=== PATIENT | female | born 1990 | race Caucasian/White ===

== ENCOUNTER 2019-03-05 12:43 | Emergency (ER) | payer OTHER ==
[2019-03-05] MEDS ORDERED: ASPIRIN 325 MG TABLET ONE (13:10)
[2019-03-05] MEDS ORDERED: ONDANSETRON HCL 4 MG/2 ML VIAL ONE (13:16)
[2019-03-05] MEDS ORDERED: CLINDAMYCIN 600 MG/D5% WATER 50 ML IV ONE (13:17)
[2019-03-05] MEDS ORDERED: MORPHINE SULFATE 4 MG/1ML SYG ONE (13:17)
[2019-03-05] MEDS ORDERED: SODIUM CHLORIDE 0.9% 1000ML 1,000 ML IV ONE (13:18)
[2019-03-05 13:25] LABS: EOSINOPHILS % (AUTO) 2.2 % (0.0-8.0); HEMATOCRIT 47.3 % (36-48); LYMPHOCYTES % (AUTO) 28.8 % (21.0-51.0); MEAN CORPUSCULAR HEMOGLOBIN 30.9 pg (27.0-33.0); MEAN CORPUSCULAR HGB CONC 34.3 g/dL (32.0-36.0); MEAN CORPUSCULAR VOLUME 89.8 fL (79-99); MONOCYTES % (AUTO) 5.3 % (3.0-13.0); NEUTROPHILS % (AUTO) 62.7 % (40.0-77.0); NUCLEATED RED BLOOD CELLS 0.1 % (0.0-0.19); PLATELET COUNT (AUTO) 361 K/uL (130-400); RED BLOOD CELL COUNT(AUTO) 5.27 MIL/uL (4.00-5.50); RED CELL DISTRIBUTION WIDTH 12.8 % (11.0-15.5); WHITE BLOOD COUNT (AUTO) 12.1 K/uL (4.8-10.8)
[2019-03-05 13:31] LABS: CREATININE 0.8 mg/dL (0.5-1.5); POTASSIUM 4.2 mmol/L (3.5-5.1)
[2019-03-05 13:36] LABS: ALBUMIN 3.6 g/dL (3.5-5.0); BILIRUBIN,TOTAL 0.3 mg/dL (0.2-1.0); TOTAL PROTEIN, SERUM 7.1 g/dL (6.0-8.3)
[2019-03-05 14:08] LABS: INR 0.95 (0.85-1.15); PARTIAL THROMBOPLASTIN TIME 27.3 SEC (26.3-35.5)
[2019-03-05] MEDS ORDERED: IOHEXOL-350 75 ML VIAL IV ONE (14:54)
== END 2019-03-05 17:26 | disposition home or self-care (01) ==
LOC: EDH 12:43
DX: R59.1 Generalized enlarged lymph nodes (principal); R68.84 Jaw pain; E11.9 Type 2 diabetes mellitus without complications
CPT/HCPCS: 36415; 70491; 71045; 80053; 82550; 84484; 84702; 85025; 85610; 85651; 85730; 86140; 87040 ×2; 93005; 96365; 96366; 96375; 96376; 99285; J2270; J2405; J3490; J7030; Q9967

== ENCOUNTER 2019-03-31 12:44 | Emergency (ER) | payer BC, OTHER ==
[2019-03-31 13:32] LABS: APPEARANCE,URINE CLOUDY (CLEAR); BILIRUBIN,URINE SMALL (NEGATIVE); COLOR,URINE YELLOW (YELLOW); GLUCOSE, URINE (UA) >=1000 mg/dL (NEGATIVE); KETONES,URINE 5 mg/dL (NEGATIVE); LEUKOCYTE ESTERASE ,URINE NEGATIVE (NEGATIVE); NITRATE,URINE NEGATIVE (NEGATIVE); OCCULT BLOOD,URINE MODERATE (NEGATIVE); PROTEIN,URINE TRACE mg/dL (NEGATIVE); UROBILINOGEN,URINE 0.2 mg/dL (0.2-1.0)
[2019-03-31 13:35] LABS: HCG,QUAL RESULT NEGATIVE (NEGATIVE)
[2019-03-31 13:38] LABS: BASOPHILS % (AUTO) 0.6 % (0.0-5.0); EOSINOPHILS % (AUTO) 2.6 % (0.0-8.0); HEMATOCRIT 45.3 % (36-48); LYMPHOCYTES % (AUTO) 23.5 % (21.0-51.0); MEAN CORPUSCULAR HEMOGLOBIN 30.7 pg (27.0-33.0); MEAN CORPUSCULAR VOLUME 90.5 fL (79-99); MONOCYTES % (AUTO) 4.9 % (3.0-13.0); NEUTROPHILS % (AUTO) 68.4 % (40.0-77.0); NUCLEATED RED BLOOD CELLS 0.1 % (0.0-0.19); PLATELET COUNT (AUTO) 339 K/uL (130-400); RED BLOOD CELL COUNT(AUTO) 5.01 MIL/uL (4.00-5.50); RED CELL DISTRIBUTION WIDTH 12.8 % (11.0-15.5); WHITE BLOOD COUNT (AUTO) 12.6 K/uL (4.8-10.8)
[2019-03-31 13:47] LABS: CREATININE 0.7 mg/dL (0.5-1.5); POTASSIUM 3.9 mmol/L (3.5-5.1)
[2019-03-31 13:52] LABS: ALBUMIN 3.2 g/dL (3.5-5.0); BILIRUBIN,TOTAL 0.2 mg/dL (0.2-1.0); TOTAL PROTEIN, SERUM 6.9 g/dL (6.0-8.3)
[2019-03-31 13:53] LABS: BACTERIA,URINE Rare /HPF (None Seen); RBC,URINE TNTC /HPF (0-1); SQUAMOUS EPITHELIAL CELL,UR Few /HPF (0-2)
== END 2019-03-31 15:30 | disposition home or self-care (01) ==
LOC: EDH 12:44
DX: R10.2 Pelvic and perineal pain (principal)
CPT/HCPCS: 36415; 76830; 80053; 81001; 81025; 85025

== ENCOUNTER 2019-05-21 21:10 | Emergency (ER) | payer BC ==
[2019-05-21 21:42] LABS: BASOPHILS % (AUTO) 0.6 % (0.0-5.0); EOSINOPHILS % (AUTO) 2.1 % (0.0-8.0); HEMATOCRIT 42.1 % (36-48); LYMPHOCYTES % (AUTO) 31.1 % (21.0-51.0); MEAN CORPUSCULAR HEMOGLOBIN 29.3 pg (27.0-33.0); MEAN CORPUSCULAR VOLUME 88.6 fL (79-99); MONOCYTES % (AUTO) 5.3 % (3.0-13.0); NEUTROPHILS % (AUTO) 60.6 % (40.0-77.0); PLATELET COUNT (AUTO) 377 K/uL (130-400); RED BLOOD CELL COUNT(AUTO) 4.75 MIL/uL (4.00-5.50); RED CELL DISTRIBUTION WIDTH 12.9 % (11.0-15.5); WHITE BLOOD COUNT (AUTO) 12.6 K/uL (4.8-10.8)
[2019-05-21 21:56] LABS: CREATININE 0.8 mg/dL (0.5-1.5); POTASSIUM 3.5 mmol/L (3.5-5.1)
[2019-05-21 22:04] LABS: ALBUMIN 3.3 g/dL (3.5-5.0); BILIRUBIN,TOTAL 0.2 mg/dL (0.2-1.0)
[2019-05-21 22:11] LABS: APPEARANCE,URINE Clear (CLEAR); BILIRUBIN,URINE Negative (NEGATIVE); COLOR,URINE Yellow (YELLOW); GLUCOSE, URINE (UA) >=1000 mg/dL (NEGATIVE); HCG,QUAL RESULT NEGATIVE (NEGATIVE); KETONES,URINE Negative (NEGATIVE); LEUKOCYTE ESTERASE ,URINE Negative (NEGATIVE); NITRATE,URINE Negative (NEGATIVE); OCCULT BLOOD,URINE Moderate (NEGATIVE); PROTEIN,URINE Negative (NEGATIVE)
[2019-05-21 22:21] LABS: BACTERIA,URINE Few /HPF (None Seen); RBC,URINE None Seen /HPF (0-1); SQUAMOUS EPITHELIAL CELL,UR 0-2 /HPF (0-2); WBC,URINE 0-1 /HPF (0-1)
== END 2019-05-21 23:37 | disposition home or self-care (01) ==
LOC: EDH 21:10
DX: N93.9 Abnormal uterine and vaginal bleeding, unspecified (principal); E11.9 Type 2 diabetes mellitus without complications; Z90.49 Acquired absence of other specified parts of digestive tract; Z72.0 Tobacco use; Z88.6 Allergy status to analgesic agent; Z91.048 Other nonmedicinal substance allergy status; Z88.1 Allergy status to other antibiotic agents
CPT/HCPCS: 36415; 76856; 80053; 81001; 81025; 85025

== ENCOUNTER 2019-05-29 18:22 | Emergency (ER) | payer BC ==
[2019-05-29 20:10] LABS: BASOPHILS % (AUTO) 0.4 % (0.0-5.0); HEMATOCRIT 43.6 % (36-48); LYMPHOCYTES % (AUTO) 28.7 % (21.0-51.0); MEAN CORPUSCULAR HEMOGLOBIN 29.6 pg (27.0-33.0); MEAN CORPUSCULAR HGB CONC 33.3 g/dL (32.0-36.0); MONOCYTES % (AUTO) 5.8 % (3.0-13.0); NEUTROPHILS % (AUTO) 62.7 % (40.0-77.0); PLATELET COUNT (AUTO) 376 K/uL (130-400); RED CELL DISTRIBUTION WIDTH 13.1 % (11.0-15.5); WHITE BLOOD COUNT (AUTO) 14.2 K/uL (4.8-10.8)
[2019-05-29] MEDS ORDERED: MORPHINE SULFATE 4 MG/1ML SYG ONE (20:21)
[2019-05-29] MEDS ORDERED: ONDANSETRON HCL 4 MG/2 ML VIAL ONE (20:21)
[2019-05-29 20:34] LABS: CREATININE 0.8 mg/dL (0.5-1.5); POTASSIUM 3.7 mmol/L (3.5-5.1)
[2019-05-29 20:45] LABS: ALBUMIN 3.3 g/dL (3.5-5.0); BILIRUBIN,TOTAL 0.1 mg/dL (0.2-1.0); TOTAL PROTEIN, SERUM 7.1 g/dL (6.0-8.3)
[2019-05-29 21:02] LABS: APPEARANCE,URINE Cloudy (CLEAR); BILIRUBIN,URINE Negative (NEGATIVE); COLOR,URINE Yellow (YELLOW); GLUCOSE, URINE (UA) 500 mg/dL (NEGATIVE); KETONES,URINE Negative (NEGATIVE); LEUKOCYTE ESTERASE ,URINE Trace (NEGATIVE); NITRATE,URINE Negative (NEGATIVE); OCCULT BLOOD,URINE Negative (NEGATIVE); PROTEIN,URINE Negative (NEGATIVE)
[2019-05-29 21:11] LABS: AMPHET/METH SCREEN,URINE NEGATIVE (NEGATIVE); BARBITURATE SCREEN, URINE NEGATIVE (NEGATIVE); BENZODIAZEPINES SCREEN,URINE NEGATIVE (NEGATIVE); CANNABINOID SCREEN,URINE POSITIVE (NEGATIVE); COCAINE SCREEN,URINE POSITIVE (NEGATIVE); OPIATE SCREEN,URINE POSITIVE (NEGATIVE); PHENCYCLIDINE SCREEN,URINE NEGATIVE (NEGATIVE)
[2019-05-29 21:15] LABS: BACTERIA,URINE Few /HPF (None Seen); MUCUS,URINE Few LPF (None Seen); SQUAMOUS EPITHELIAL CELL,UR Few /HPF (0-2); URIC ACID CRYSTALS,URINE Moderate /LPF (None Seen)
[2019-05-29] MEDS ORDERED: FLUCONAZOLE 100 MG TAB ONE (21:45)
[2019-05-29] MEDS ORDERED: CEFTRIAXONE SODIUM 1 GM ONE (21:45)
[2019-05-29] MEDS ORDERED: LIDOCAINE HCL-MPF 1% 2ML VIAL ONE (21:45)
[2019-05-29] MEDS ORDERED: AZITHROMYCIN 250 MG TABLET PO ONE (21:46)
== END 2019-05-29 22:41 | disposition home or self-care (01) ==
LOC: EDH 18:22
DX: N73.9 Female pelvic inflammatory disease, unspecified (principal); E11.9 Type 2 diabetes mellitus without complications; F14.10 Cocaine abuse, uncomplicated; F12.10 Cannabis abuse, uncomplicated; Z88.6 Allergy status to analgesic agent; Z88.8 Allergy status to other drugs, medicaments and biological substances; Z90.49 Acquired absence of other specified parts of digestive tract; Z72.0 Tobacco use
CPT/HCPCS: 36415; 76830; 80053; 80305; 81001; 84702; 85025; 87210; 87486; 87797; 96372; 96374; 99284; J0696; J2270; J2405; J3490

== ENCOUNTER 2020-09-18 03:49 | Emergency (ER) | payer BC ==
[2020-09-18 04:24] LABS: BASOPHILS % (AUTO) 0.6 % (0.0-5.0); EOSINOPHILS % (AUTO) 2.2 % (0.0-8.0); HEMATOCRIT 44.4 % (36-48); LYMPHOCYTES % (AUTO) 30.2 % (21.0-51.0); MEAN CORPUSCULAR HEMOGLOBIN 32.1 pg (27.0-33.0); MEAN CORPUSCULAR HGB CONC 35.1 g/dL (32.0-36.0); MEAN CORPUSCULAR VOLUME 91.4 fL (79-99); MONOCYTES % (AUTO) 4.3 % (3.0-13.0); NEUTROPHILS % (AUTO) 62.3 % (40.0-77.0); PLATELET COUNT (AUTO) 373 K/uL (130-400); RED BLOOD CELL COUNT(AUTO) 4.86 MIL/uL (4.00-5.50); RED CELL DISTRIBUTION WIDTH 12.8 % (11.0-15.5); WHITE BLOOD COUNT (AUTO) 15.4 K/uL (4.8-10.8)
[2020-09-18 04:30] LABS: APPEARANCE,URINE Clear (CLEAR); BILIRUBIN,URINE Negative (NEGATIVE); COLOR,URINE Yellow (YELLOW); GLUCOSE, URINE (UA) >=1000 mg/dL (NEGATIVE); KETONES,URINE 15 mg/dL (NEGATIVE); LEUKOCYTE ESTERASE ,URINE Negative (NEGATIVE); NITRATE,URINE Negative (NEGATIVE); OCCULT BLOOD,URINE Small (NEGATIVE); PROTEIN,URINE Negative (NEGATIVE); UROBILINOGEN,URINE 0.2 mg/dL (0.2-1.0)
[2020-09-18 04:31] LABS: HCG,QUAL RESULT NEGATIVE (NEGATIVE)
[2020-09-18 04:37] LABS: CREATININE 0.9 mg/dL (0.5-1.5); POTASSIUM 3.8 mmol/L (3.5-5.1)
[2020-09-18 04:40] LABS: BACTERIA,URINE Few /HPF (None Seen); RBC,URINE None Seen /HPF (0-1); WBC,URINE 0-1 /HPF (0-1)
[2020-09-18 04:42] LABS: ALBUMIN 3.2 g/dL (3.5-5.0); BILIRUBIN,TOTAL 0.4 mg/dL (0.2-1.0)
[2020-09-18] MEDS ORDERED: IOHEXOL 350 MG/ML 100ML INFUS..BTL IV ONE (05:03)
[2020-09-18] MEDS ORDERED: ONDANSETRON HCL 4 MG/2 ML VIAL ONE (05:14)
[2020-09-18] MEDS ORDERED: METOCLOPRAMIDE 10 MG/2 ML VIAL ONE (05:14)
[2020-09-18 05:16] LABS: AMPHET/METH SCREEN,URINE NEGATIVE (NEGATIVE); BARBITURATE SCREEN, URINE NEGATIVE (NEGATIVE); BENZODIAZEPINES SCREEN,URINE NEGATIVE (NEGATIVE); CANNABINOID SCREEN,URINE POSITIVE (NEGATIVE); COCAINE SCREEN,URINE NEGATIVE (NEGATIVE); OPIATE SCREEN,URINE NEGATIVE (NEGATIVE); PHENCYCLIDINE SCREEN,URINE NEGATIVE (NEGATIVE)
[2020-09-18 05:37] LABS: TOTAL PROTEIN, SERUM 6.9 g/dL (6.0-8.3)
[2020-09-18] MEDS ORDERED: LEVOFLOXACIN 500 MG TABLET ONE (08:02)
[2020-09-18] MEDS ORDERED: HYOSCYAMINE SULFATE 0.125 MG TAB.SUBL SL ONE (08:02)
[2020-09-18] MEDS ORDERED: FLUCONAZOLE 100 MG TAB ONE (08:02)
== END 2020-09-18 08:55 | disposition home or self-care (01) ==
LOC: EDH 03:49
DX: N39.0 Urinary tract infection, site not specified (principal); R19.7 Diarrhea, unspecified; E86.0 Dehydration; Z90.49 Acquired absence of other specified parts of digestive tract; Z72.0 Tobacco use; Z88.5 Allergy status to narcotic agent; Z88.6 Allergy status to analgesic agent; Z88.8 Allergy status to other drugs, medicaments and biological substances
CPT/HCPCS: 36415; 74177; 80053; 80305; 81001; 81025; 83605 ×2; 83690; 85025; 87040 ×2; 96361; 96374; 96375; 99285; J2405; J2765; Q9967

== ENCOUNTER 2020-12-22 16:32 | Emergency (ER) | payer BC, MEDICAID ==
[~2020-12-22] VITALS: Ht 157.5 cm; Wt 83.9 kg
[2020-12-22 16:34] VITALS: BP 140/74
== END 2020-12-22 19:10 | disposition left against medical advice (07) ==
LOC: EDH 16:32
DX: O26.891 Other specified pregnancy related conditions, first trimester (principal); R51.9 Headache, unspecified; Z53.21 Procedure and treatment not carried out due to patient leaving prior to being seen by health care provider; Z3A.10 10 weeks gestation of pregnancy

== ENCOUNTER 2021-01-18 18:04 | Observation (INO) | payer MEDICAID ==
[~2021-01-18] VITALS: Ht 152.4 cm; Wt 86.2 kg
[2021-01-18 18:20] VITALS: BP 125/75
[2021-01-18 18:52] LABS: APPEARANCE,URINE CLOUDY (CLEAR); BILIRUBIN,URINE NEGATIVE (NEGATIVE); COLOR,URINE YELLOW (YELLOW); GLUCOSE, URINE (UA) NEGATIVE (NEGATIVE); KETONES,URINE 5 mg/dL (NEGATIVE); LEUKOCYTE ESTERASE ,URINE NEGATIVE (NEGATIVE); NITRATE,URINE NEGATIVE (NEGATIVE); OCCULT BLOOD,URINE TRACE-INTACT (NEGATIVE); PH,URINE 6.5 (5.0-8.0); PROTEIN,URINE NEGATIVE (NEGATIVE); UROBILINOGEN,URINE 0.2 mg/dL (0.2-1.0)
[2021-01-18 18:54] LABS: BASOPHILS % (AUTO) 0.5 % (0.0-5.0); EOSINOPHILS % (AUTO) 0.9 % (0.0-8.0); HEMATOCRIT 37.2 % (36-48); MEAN CORPUSCULAR HEMOGLOBIN 30.1 pg (27.0-33.0); MEAN CORPUSCULAR HGB CONC 33.6 g/dL (32.0-36.0); MEAN CORPUSCULAR VOLUME 89.6 fL (79-99); MONOCYTES % (AUTO) 5.1 % (3.0-13.0); NEUTROPHILS % (AUTO) 75.1 % (40.0-77.0); PLATELET COUNT (AUTO) 358 K/uL (130-400); RED BLOOD CELL COUNT(AUTO) 4.15 MIL/uL (4.00-5.50); RED CELL DISTRIBUTION WIDTH 12.7 % (11.0-15.5)
[2021-01-18 19:01] LABS: BACTERIA,URINE Few /HPF (None Seen); CALCIUM OXALATE CRYSTALS,UR Few /LPF (None Seen); SQUAMOUS EPITHELIAL CELL,UR Many /HPF (0-2); WBC,URINE 0-1 /HPF (0-1)
[2021-01-18 19:02] LABS: AMORPHOUS SEDIMENT,UR Few /LPF (None Seen)
[2021-01-18] MEDS ORDERED: 0.9%NACL 1000ML 1,000 ML IV ONE (19:30)
[2021-01-18] MEDS ORDERED: LACTATED RINGERS 1000ML 1,000 ML IV ONE (19:44)
[2021-01-18 20:00] VITALS: BP 124/70
[2021-01-18] MEDS ORDERED: LACTATED RINGERS 1000ML 1,000 ML IV SCH (20:00)
[2021-01-18 21:48] LABS: BILIRUBIN,TOTAL 0.2 mg/dL (0.2-1.0); CREATININE 0.5 mg/dL (0.5-1.5); POTASSIUM 3.4 mmol/L (3.5-5.1); TOTAL PROTEIN, SERUM 6.5 g/dL (6.0-8.3)
[2021-01-18 22:00] VITALS: BP 122/56
[2021-01-18] MEDS: ACETAMINOPHEN WITH CODEINE 1 TAB TAB PO PRN (22:41)
[2021-01-18 23:05] VITALS: BP 123/68
[2021-01-19] MEDS ORDERED: PNV#1CAP5 PO (00:10)
[2021-01-19] MEDS ORDERED: NPH,100V11 SQ (00:10)
[2021-01-19] MEDS ORDERED: ACETAMINOPHEN WITH CODEINE 1 TAB TAB PO PRN (00:30)
[2021-01-19] MEDS: LACTATED RINGERS 1000ML 1,000 ML IV SCH ×2 (03:34→10:09)
[2021-01-19] MEDS: ACETAMINOPHEN WITH CODEINE 1 TAB TAB PO PRN ×3 (04:07→12:34)
[2021-01-19 04:36] VITALS: BP 110/64
[2021-01-19 08:01] VITALS: BP 111/59
[2021-01-19] MEDS ORDERED: INSULIN NPH 100 UNIT/ML 3ML SQ SCH ×4 (09:00→21:00)
[2021-01-19] MEDS ORDERED: PHARMACY COMMUNICATION MISC SCH ×2 (09:00→21:00)
[2021-01-19 11:21] VITALS: BP 101/47
[2021-01-20] MEDS ORDERED: INSULIN NPH 100 UNIT/ML 3ML SQ SCH (07:30)
== END 2021-01-19 16:15 | disposition home or self-care (01) ==
LOC: EDH 18:04 → EDHIP 19:16 → WSH 01-19
PROVIDERS: ADMIT Specialist; ATTEND Specialist
DX: O26.892 Other specified pregnancy related conditions, second trimester (principal); R10.30 Lower abdominal pain, unspecified; R10.2 Pelvic and perineal pain; O24.912 Unspecified diabetes mellitus in pregnancy, second trimester; Z3A.20 20 weeks gestation of pregnancy; Z87.442 Personal history of urinary calculi
CPT/HCPCS: 36415; 76770; 80053; 81001; 82948 ×3; 84702; 85025; 86850; 86900; 86901; 96360; 96361 ×2; 99284; G0378 ×21; J7120 ×2

== ENCOUNTER 2021-01-31 22:17 | Emergency (ER) | payer MEDICAID ==
[~2021-01-31] VITALS: Ht 152.4 cm; Wt 87.5 kg
[~2021-01-31 22:17] MED LIST: NPH,100V11 SQ; PNV#1CAP5 PO
[2021-01-31 22:44] VITALS: BP 127/58
[2021-01-31 23:16] VITALS: BP 123/70
[2021-01-31] MEDS ORDERED: ACETAMINOPHEN 325 MG TAB PO ONE (23:30)
[2021-01-31] MEDS ORDERED: 0.9%NACL 1000ML 1,000 ML IV ONE (23:30)
[2021-01-31 23:38] LABS: BASOPHILS % (AUTO) 0.4 % (0.0-5.0); EOSINOPHILS % (AUTO) 1.2 % (0.0-8.0); HEMATOCRIT 39.6 % (36-48); LYMPHOCYTES % (AUTO) 17.3 % (21.0-51.0); MEAN CORPUSCULAR HEMOGLOBIN 30.8 pg (27.0-33.0); MEAN CORPUSCULAR HGB CONC 34.1 g/dL (32.0-36.0); MEAN CORPUSCULAR VOLUME 90.4 fL (79-99); MONOCYTES % (AUTO) 5.2 % (3.0-13.0); NEUTROPHILS % (AUTO) 75.3 % (40.0-77.0); PLATELET COUNT (AUTO) 365 K/uL (130-400); RED BLOOD CELL COUNT(AUTO) 4.38 MIL/uL (4.00-5.50); RED CELL DISTRIBUTION WIDTH 12.9 % (11.0-15.5); WHITE BLOOD COUNT (AUTO) 15.6 K/uL (4.8-10.8)
[2021-01-31 23:39] LABS: APPEARANCE,URINE Turbid (CLEAR); BILIRUBIN,URINE Negative (NEGATIVE); COLOR,URINE Yellow (YELLOW); GLUCOSE, URINE (UA) 500 mg/dL (NEGATIVE); KETONES,URINE Negative (NEGATIVE); LEUKOCYTE ESTERASE ,URINE Negative (NEGATIVE); NITRATE,URINE Negative (NEGATIVE); OCCULT BLOOD,URINE Negative (NEGATIVE); PROTEIN,URINE Negative (NEGATIVE)
[2021-01-31 23:45] LABS: CREATININE 0.5 mg/dL (0.5-1.5); POTASSIUM 3.7 mmol/L (3.5-5.1)
[2021-02-01] LABS: AMORPHOUS SEDIMENT,UR Moderate /LPF (None Seen); BACTERIA,URINE None Seen /HPF (None Seen); CALCIUM OXALATE CRYSTALS,UR Few /LPF (None Seen); RBC,URINE 0-1 /HPF (0-1); SQUAMOUS EPITHELIAL CELL,UR Few /HPF (0-2); TRANSITIONAL EPI CELLS,URINE Few /HPF (None Seen); WBC,URINE None Seen /HPF (0-1)
[2021-02-01 00:11] LABS: ALBUMIN 3.2 g/dL (3.5-5.0); BILIRUBIN,TOTAL 0.1 mg/dL (0.2-1.0); TOTAL PROTEIN, SERUM 6.6 g/dL (6.0-8.3)
[2021-02-01 00:52] VITALS: BP_SYST 114; BP_SYST 168; BP_DIAS 73; BP_DIAS 91
[2021-02-01 04:18] VITALS: BP 110/59
== END 2021-02-01 04:38 | disposition home or self-care (01) ==
LOC: EDH 22:17
DX: O26.892 Other specified pregnancy related conditions, second trimester (principal); R10.2 Pelvic and perineal pain; O20.9 Hemorrhage in early pregnancy, unspecified; Z79.4 Long term (current) use of insulin; Z87.442 Personal history of urinary calculi; Z88.1 Allergy status to other antibiotic agents; Z88.5 Allergy status to narcotic agent; Z91.013 Allergy to seafood; Z90.49 Acquired absence of other specified parts of digestive tract; Z3A.15 15 weeks gestation of pregnancy
CPT/HCPCS: 36415; 76775; 76805; 80053; 81001; 83690; 84702; 85025; 87088; 96360; 96361; 99285; J7030

== ENCOUNTER 2021-03-14 16:58 | Observation (INO) | payer MEDICAID ==
[~2021-03-14] VITALS: Ht 162.6 cm; Wt 73.5 kg
[2021-03-14 18:02] LABS: APPEARANCE,URINE Clear (CLEAR); BILIRUBIN,URINE Negative (NEGATIVE); COLOR,URINE Yellow (YELLOW); GLUCOSE, URINE (UA) 250 mg/dL (NEGATIVE); KETONES,URINE 15 mg/dL (NEGATIVE); LEUKOCYTE ESTERASE ,URINE Negative (NEGATIVE); NITRATE,URINE Negative (NEGATIVE); OCCULT BLOOD,URINE Negative (NEGATIVE); PH,URINE 6.5 (5.0-8.0); PROTEIN,URINE Negative (NEGATIVE)
[2021-03-14 18:09] LABS: AMPHET/METH SCREEN,URINE NEGATIVE (NEGATIVE); BARBITURATE SCREEN, URINE NEGATIVE (NEGATIVE); BENZODIAZEPINES SCREEN,URINE NEGATIVE (NEGATIVE); CANNABINOID SCREEN,URINE NEGATIVE (NEGATIVE); COCAINE SCREEN,URINE NEGATIVE (NEGATIVE); OPIATE SCREEN,URINE NEGATIVE (NEGATIVE); PHENCYCLIDINE SCREEN,URINE NEGATIVE (NEGATIVE)
[2021-03-14 18:28] LABS: BACTERIA,URINE Few /HPF (None Seen); RBC,URINE 0-1 /HPF (0-1); SQUAMOUS EPITHELIAL CELL,UR Few /HPF (0-2)
[2021-03-14 18:29] LABS: MUCUS,URINE Rare LPF (None Seen)
[2021-03-14] MEDS ORDERED: LACTATED RINGERS 1000ML 1,000 ML IV ONE (18:45)
[2021-03-14] MEDS ORDERED: LACTATED RINGERS 1000ML IV SCH (19:00)
[2021-03-14] MEDS ORDERED: ACETAMINOPHEN 500 MG TABLET PO ONE (19:00)
[2021-03-14 19:09] VITALS: BP 118/66
[2021-03-15] MEDS ORDERED: NPH,100V SQ ×2 (14:41)
== END 2021-03-14 20:28 | disposition home or self-care (01) ==
LOC: EDH 16:58 → LDH 16:59
PROVIDERS: ADMIT Specialist; ATTEND Specialist
DX: O26.892 Other specified pregnancy related conditions, second trimester (principal); R10.9 Unspecified abdominal pain; O99.332 Smoking (tobacco) complicating pregnancy, second trimester; F17.200 Nicotine dependence, unspecified, uncomplicated; Z3A.21 21 weeks gestation of pregnancy; Z87.440 Personal history of urinary (tract) infections; Z87.442 Personal history of urinary calculi
CPT/HCPCS: 80305; 81001; 87088; 96360; 96361; G0378; J7120

== ENCOUNTER 2021-03-15 12:53 | Inpatient (IN) | payer MEDICAID ==
[~2021-03-15] VITALS: Ht 152.4 cm; Wt 95.3 kg
[2021-03-15 13:28] VITALS: BP 128/75
[2021-03-15] MEDS: ACETAMINOPHEN WITH CODEINE 1 TAB TAB PO PRN ×2 (14:11→19:03)
[2021-03-15] MEDS: LACTATED RINGERS 1000ML 1,000 ML IV SCH ×2 (14:12→21:35)
[2021-03-15 14:23] LABS: HEMATOCRIT 35.5 % (36-48); MEAN CORPUSCULAR HEMOGLOBIN 30.3 pg (27.0-33.0); MEAN CORPUSCULAR HGB CONC 33.2 g/dL (32.0-36.0); MEAN CORPUSCULAR VOLUME 91.3 fL (79-99); RED BLOOD CELL COUNT(AUTO) 3.89 MIL/uL (4.00-5.50); RED CELL DISTRIBUTION WIDTH 13.3 % (11.0-15.5); WHITE BLOOD COUNT (AUTO) 16.2 K/uL (4.8-10.8)
[2021-03-15] MEDS ORDERED: NPH,100V SQ ×2 (14:41)
[2021-03-15 14:47] LABS: HEMOGLOBIN A1C 7.4 % (4.0-6.0)
[2021-03-15] MEDS: AMPICILLIN 2GM+NS 100ML IV SCH ×2 (15:08→20:51)
[2021-03-15 16:39] VITALS: BP 118/63
[2021-03-15 19:31] VITALS: BP 119/57
[2021-03-15] MEDS: INSULIN NPH 100 UNIT/ML 3ML SQ SCH (20:58)
[2021-03-15] MEDS: MEPERIDINE-PF 50 MG/ML SYG IM PRN (21:37)
[2021-03-15] MEDS: PROMETHAZINE HCL 25 MG/ML 1ML AMPULE IM PRN (21:37)
[2021-03-15 23:20] VITALS: BP 118/61
[2021-03-16] MEDS: AMPICILLIN 2GM+NS 100ML IV SCH ×4 (02:10→21:02)
[2021-03-16] MEDS: PROMETHAZINE HCL 25 MG/ML 1ML AMPULE IM PRN ×4 (02:11→21:02)
[2021-03-16] MEDS: MEPERIDINE-PF 50 MG/ML SYG IM PRN ×4 (02:11→21:02)
[2021-03-16 03:06] VITALS: BP 123/63
[2021-03-16] MEDS: LACTATED RINGERS 1000ML 1,000 ML IV SCH ×2 (05:47→13:59)
[2021-03-16] MEDS: ACETAMINOPHEN WITH CODEINE 1 TAB TAB PO PRN (06:00)
[2021-03-16 07:15] VITALS: BP 112/63
[2021-03-16] MEDS: INSULIN NPH 100 UNIT/ML 3ML SQ SCH ×2 (07:45→20:54)
[2021-03-16] MEDS: INSULIN HUMULIN R 100 UNIT/ML 3ML SQ SCH ×3 (11:30→21:00)
[2021-03-16 11:34] VITALS: BP 106/64
[2021-03-16 16:22] VITALS: BP 111/57
[2021-03-16 19:22] VITALS: BP 108/59
[2021-03-16 23:04] VITALS: BP 111/60
[2021-03-17] MEDS: LACTATED RINGERS 1000ML 1,000 ML IV SCH ×4 (00:04→23:10)
[2021-03-17] MEDS: AMPICILLIN 2GM+NS 100ML IV SCH ×4 (02:08→20:26)
[2021-03-17] MEDS: PROMETHAZINE HCL 25 MG/ML 1ML AMPULE IM PRN ×4 (03:23→19:59)
[2021-03-17] MEDS: MEPERIDINE-PF 50 MG/ML SYG IM PRN ×4 (03:24→19:59)
[2021-03-17 03:25] VITALS: BP 102/55
[2021-03-17 05:44] LABS: HEMATOCRIT 32.5 % (36-48); MEAN CORPUSCULAR HEMOGLOBIN 29.6 pg (27.0-33.0); MEAN CORPUSCULAR VOLUME 92.6 fL (79-99); RED BLOOD CELL COUNT(AUTO) 3.51 MIL/uL (4.00-5.50); RED CELL DISTRIBUTION WIDTH 13.4 % (11.0-15.5); WHITE BLOOD COUNT (AUTO) 14.7 K/uL (4.8-10.8)
[2021-03-17 05:58] LABS: CREATININE 0.5 mg/dL (0.5-1.5); POTASSIUM 3.8 mmol/L (3.5-5.1)
[2021-03-17 07:19] VITALS: BP 101/55
[2021-03-17] MEDS: INSULIN HUMULIN R 100 UNIT/ML 3ML SQ SCH ×4 (07:30→21:00)
[2021-03-17] MEDS: INSULIN NPH 100 UNIT/ML 3ML SQ SCH (07:42)
[2021-03-17 11:57] VITALS: BP 112/59
[2021-03-17] MEDS: ACETAMINOPHEN WITH CODEINE 1 TAB TAB PO PRN ×2 (11:59→19:41)
[2021-03-17 16:22] VITALS: BP 122/56
[2021-03-17 20:16] VITALS: BP 120/61
[2021-03-17] MEDS ORDERED: INSULIN NPH 100 UNIT/ML 3ML SQ SCH (21:00)
[2021-03-17 23:53] VITALS: BP 119/66
[2021-03-18] MEDS: LACTATED RINGERS 1000ML 1,000 ML IV SCH ×3 (00:23→07:40)
[2021-03-18] MEDS: AMPICILLIN 2GM+NS 100ML IV SCH ×3 (02:03→13:44)
[2021-03-18] MEDS: MEPERIDINE-PF 50 MG/ML SYG IM PRN ×2 (02:15→10:13)
[2021-03-18] MEDS: PROMETHAZINE HCL 25 MG/ML 1ML AMPULE IM PRN ×2 (02:15→10:13)
[2021-03-18 03:14] VITALS: BP 117/68
[2021-03-18] MEDS: INSULIN HUMULIN R 100 UNIT/ML 3ML SQ SCH ×2 (07:30→11:30)
[2021-03-18 07:40] VITALS: BP 104/66
[2021-03-18] MEDS: INSULIN NPH 100 UNIT/ML 3ML SQ SCH (08:23)
[2021-03-18] MEDS: ACETAMINOPHEN WITH CODEINE 1 TAB TAB PO PRN (08:26)
[2021-03-18] MEDS ORDERED: FLUCONAZOLE 100 MG TAB PO SCH (11:30)
[2021-03-18 11:54] VITALS: BP 106/67
[2021-03-19] MEDS ORDERED: FLUCONAZOLE 100 MG TAB PO SCH (09:00)
[2021-05-27] MEDS ORDERED: ASPI-1005 PO (10:10)
== END 2021-03-18 15:30 | disposition home or self-care (01) | DRG 566 ==
LOC: WSH 12:53
PROVIDERS: ADMIT Specialist; ATTEND Specialist
DX: O23.02 Infections of kidney in pregnancy, second trimester (principal); O24.312 Unspecified pre-existing diabetes mellitus in pregnancy, second trimester; F17.210 Nicotine dependence, cigarettes, uncomplicated; Z79.4 Long term (current) use of insulin; Z87.442 Personal history of urinary calculi; Z88.5 Allergy status to narcotic agent; Z91.013 Allergy to seafood; Z88.8 Allergy status to other drugs, medicaments and biological substances; Z3A.23 23 weeks gestation of pregnancy; N20.0 Calculus of kidney
CPT/HCPCS: 36415; 76770; 80048; 80305; 81001; 82948; 83036; 85027; 87088; 96360; 96361; G0378; J0290; J1815; J2175; J2550; J7120

== ENCOUNTER 2021-03-29 21:11 | Observation (INO) | payer MEDICAID ==
[~2021-03-29] VITALS: Ht 152.4 cm; Wt 92.8 kg
[~2021-03-29 21:11] MED LIST changes: +NPH,100V SQ; -NPH,100V11 SQ
[2021-03-29 22:25] LABS: APPEARANCE,URINE Clear (CLEAR); BILIRUBIN,URINE Negative (NEGATIVE); COLOR,URINE Yellow (YELLOW); GLUCOSE, URINE (UA) >=1000 mg/dL (NEGATIVE); KETONES,URINE Negative (NEGATIVE); LEUKOCYTE ESTERASE ,URINE Negative (NEGATIVE); NITRATE,URINE Negative (NEGATIVE); OCCULT BLOOD,URINE Negative (NEGATIVE); PROTEIN,URINE Negative (NEGATIVE); UROBILINOGEN,URINE 0.2 mg/dL (0.2-1.0)
[2021-03-29 22:33] LABS: AMPHET/METH SCREEN,URINE NEGATIVE (NEGATIVE); BARBITURATE SCREEN, URINE NEGATIVE (NEGATIVE); BENZODIAZEPINES SCREEN,URINE NEGATIVE (NEGATIVE); CANNABINOID SCREEN,URINE NEGATIVE (NEGATIVE); COCAINE SCREEN,URINE NEGATIVE (NEGATIVE); OPIATE SCREEN,URINE NEGATIVE (NEGATIVE); PHENCYCLIDINE SCREEN,URINE NEGATIVE (NEGATIVE)
[2021-03-29 22:40] LABS: BACTERIA,URINE Few /HPF (None Seen); RBC,URINE 0-1 /HPF (0-1)
[2021-03-29] MEDS ORDERED: NPH,100V SQ ×2 (22:40→22:42)
[2021-03-29] MEDS ORDERED: ACET1TAB25 PO (22:42)
[2021-03-29 22:43] VITALS: BP 145/65
[2021-03-29] MEDS ORDERED: NITR100C PO (22:43)
[2021-03-30] MEDS: LACTATED RINGERS 1000ML 1,000 ML IV SCH ×3 (00:08→09:22)
[2021-03-30] MEDS: PROMETHAZINE HCL 25 MG/ML 1ML AMPULE IM PRN ×3 (00:13→10:50)
[2021-03-30] MEDS: MEPERIDINE-PF 50 MG/ML SYG IM PRN ×3 (00:14→10:50)
[2021-03-30 00:31] LABS: CREATININE 0.7 mg/dL (0.5-1.5); POTASSIUM 3.6 mmol/L (3.5-5.1)
[2021-03-30 00:38] LABS: BASOPHILS % (AUTO) 0.4 % (0.0-5.0); EOSINOPHILS % (AUTO) 1.9 % (0.0-8.0); HEMATOCRIT 36.5 % (36-48); LYMPHOCYTES % (AUTO) 20.2 % (21.0-51.0); MEAN CORPUSCULAR HEMOGLOBIN 29.9 pg (27.0-33.0); MEAN CORPUSCULAR HGB CONC 32.3 g/dL (32.0-36.0); MEAN CORPUSCULAR VOLUME 92.4 fL (79-99); MONOCYTES % (AUTO) 5.1 % (3.0-13.0); NEUTROPHILS % (AUTO) 71.3 % (40.0-77.0); PLATELET COUNT (AUTO) 441 K/uL (130-400); RED BLOOD CELL COUNT(AUTO) 3.95 MIL/uL (4.00-5.50); RED CELL DISTRIBUTION WIDTH 13.3 % (11.0-15.5); WHITE BLOOD COUNT (AUTO) 18.4 K/uL (4.8-10.8)
[2021-03-30 01:19] VITALS: BP 113/67
[2021-03-30 03:39] VITALS: BP 123/68
[2021-03-30] MEDS ORDERED: FLU VACC QS2021-22(6MOS UP)/PF 60 MCG/0.5 ML ML IM SCH (07:00)
[2021-03-30 07:14] VITALS: BP 112/62
[2021-03-30] MEDS ORDERED: NITROFURANTOIN MONOHYD/M-CRYST 100 MG CAPSULE PO SCH (09:00)
[2021-03-30] MEDS ORDERED: INSULIN NPH 100 UNIT/ML 3ML SQ SCH ×2 (09:00→21:00)
[2021-03-30] MEDS ORDERED: FLU VACC QS2021-22(6MOS UP)/PF 60 MCG/0.5 ML ML IM ONE (09:00)
== END 2021-03-30 11:30 | disposition home or self-care (01) ==
LOC: EDH 21:11 → LDH 21:12 → WSH 03-30 01:15
PROVIDERS: ADMIT Specialist; ATTEND Specialist
DX: O26.892 Other specified pregnancy related conditions, second trimester (principal); R10.9 Unspecified abdominal pain; R60.0 Localized edema; O99.332 Smoking (tobacco) complicating pregnancy, second trimester; F17.200 Nicotine dependence, unspecified, uncomplicated; Z3A.23 23 weeks gestation of pregnancy
CPT/HCPCS: 36415; 76770; 80048; 80305; 81001; 82948; 85025; 96360; 96372 ×2; G0378 ×13; G0379; J1815; J2175 ×3; J2550 ×3; J7120; Q2035

== ENCOUNTER 2021-04-11 14:19 | Observation (INO) | payer MEDICAID ==
[~2021-04-11] VITALS: Ht 152.4 cm; Wt 95.7 kg
[~2021-04-11 14:19] MED LIST changes: +ACET1TAB25 PO; +NITR100C PO
[2021-04-11 15:19] LABS: APPEARANCE,URINE Clear (CLEAR); BILIRUBIN,URINE Negative (NEGATIVE); COLOR,URINE Yellow (YELLOW); GLUCOSE, URINE (UA) >=1000 mg/dL (NEGATIVE); KETONES,URINE Trace mg/dL (NEGATIVE); LEUKOCYTE ESTERASE ,URINE Negative (NEGATIVE); NITRATE,URINE Negative (NEGATIVE); OCCULT BLOOD,URINE Negative (NEGATIVE); PROTEIN,URINE Negative (NEGATIVE); UROBILINOGEN,URINE 0.2 mg/dL (0.2-1.0)
[2021-04-11 15:27] LABS: AMPHET/METH SCREEN,URINE NEGATIVE (NEGATIVE); BARBITURATE SCREEN, URINE NEGATIVE (NEGATIVE); BENZODIAZEPINES SCREEN,URINE NEGATIVE (NEGATIVE); CANNABINOID SCREEN,URINE NEGATIVE (NEGATIVE); COCAINE SCREEN,URINE NEGATIVE (NEGATIVE); OPIATE SCREEN,URINE NEGATIVE (NEGATIVE); PHENCYCLIDINE SCREEN,URINE NEGATIVE (NEGATIVE)
[2021-04-11 15:28] LABS: BACTERIA,URINE Few /HPF (None Seen); RBC,URINE 0-1 /HPF (0-1); SQUAMOUS EPITHELIAL CELL,UR Moderate /HPF (0-2); WBC,URINE 0-1 /HPF (0-1)
[2021-04-11 15:29] LABS: MUCUS,URINE Rare LPF (None Seen)
[2021-04-11] MEDS ORDERED: ACETAMINOPHEN WITH CODEINE 1 TAB TAB PO PRN (16:00)
[2021-04-11] MEDS: LACTATED RINGERS 1000ML 1,000 ML IV SCH ×2 (16:00→21:25)
[2021-04-11] MEDS ORDERED: INSULIN NPH 100 UNIT/ML 3ML SQ SCH (17:00)
[2021-04-11] MEDS: PROMETHAZINE HCL 25 MG/ML 1ML AMPULE IM PRN (18:22)
[2021-04-11] MEDS: MEPERIDINE-PF 50 MG/ML SYG IM PRN (18:23)
[2021-04-11 20:02] VITALS: BP 113/62
[2021-04-11] MEDS ORDERED: NPH,100V SQ ×2 (20:51)
[2021-04-11] MEDS ORDERED: PNV#1CAP5 PO (20:51)
[2021-04-11] MEDS: INSULIN NPH 100 UNIT/ML 3ML SQ SCH (21:40)
[2021-04-11 23:23] VITALS: BP 97/56
[2021-04-12] MEDS: PROMETHAZINE HCL 25 MG/ML 1ML AMPULE IM PRN ×3 (00:42→19:15)
[2021-04-12] MEDS: MEPERIDINE-PF 50 MG/ML SYG IM PRN ×3 (00:43→19:15)
[2021-04-12] MEDS: LACTATED RINGERS 1000ML 1,000 ML IV SCH ×4 (03:30→23:35)
[2021-04-12 03:35] VITALS: BP 93/48
[2021-04-12 07:28] VITALS: BP 95/47
[2021-04-12] MEDS ORDERED: INSULIN NPH 100 UNIT/ML 3ML SQ SCH (09:00)
[2021-04-12] MEDS: INSULIN NPH 100 UNIT/ML 3ML SQ SCH ×2 (09:19→21:07)
[2021-04-12 11:22] VITALS: BP 105/61
[2021-04-12 15:12] VITALS: BP_SYST 104; BP_SYST 113; BP_DIAS 60; BP_DIAS 67
[2021-04-12] MEDS ORDERED: ACETAMINOPHEN WITH CODEINE 1 TAB TAB PO PRN (18:30)
[2021-04-12 19:25] VITALS: BP 111/62
[2021-04-12 22:56] VITALS: BP 106/57
[2021-04-13 02:55] VITALS: BP 130/67
[2021-04-13] MEDS: PROMETHAZINE HCL 25 MG/ML 1ML AMPULE IM PRN ×2 (02:58→08:40)
[2021-04-13] MEDS: MEPERIDINE-PF 50 MG/ML SYG IM PRN ×2 (02:59→08:42)
[2021-04-13] MEDS: LACTATED RINGERS 1000ML 1,000 ML IV SCH ×2 (04:57→08:00)
[2021-04-13 06:34] LABS: MEAN CORPUSCULAR HEMOGLOBIN 29.7 pg (27.0-33.0); MEAN CORPUSCULAR HGB CONC 32.7 g/dL (32.0-36.0); MEAN CORPUSCULAR VOLUME 90.9 fL (79-99); RED BLOOD CELL COUNT(AUTO) 3.3 MIL/uL (4.00-5.50); RED CELL DISTRIBUTION WIDTH 13.4 % (11.0-15.5); WHITE BLOOD COUNT (AUTO) 13.8 K/uL (4.8-10.8)
[2021-04-13 06:42] LABS: CREATININE 0.5 mg/dL (0.5-1.5); POTASSIUM 3.5 mmol/L (3.5-5.1)
[2021-04-13 07:28] VITALS: BP 129/59
[2021-04-13] MEDS: INSULIN NPH 100 UNIT/ML 3ML SQ SCH (08:27)
[2021-04-13] MEDS ORDERED: NPH,100V SQ ×2 (09:58→10:00)
== END 2021-04-13 10:40 | disposition home or self-care (01) ==
LOC: LDH 14:19 → WSH 16:40
PROVIDERS: ADMIT Specialist; ATTEND Specialist
DX: O24.414 Gestational diabetes mellitus in pregnancy, insulin controlled (principal); O26.892 Other specified pregnancy related conditions, second trimester; R10.9 Unspecified abdominal pain; Z3A.26 26 weeks gestation of pregnancy; Z79.4 Long term (current) use of insulin; Z87.442 Personal history of urinary calculi
CPT/HCPCS: 36415; 59025 ×2; 76770; 80048; 80305; 81001; 82948 ×7; 85027; 96360; 96361 ×3; 96372 ×3; G0378 ×43; G0379; J1815 ×4; J2175 ×6; J2550 ×6; J7120 ×5

== ENCOUNTER 2021-04-24 19:50 | Observation (INO) | payer MEDICAID ==
[~2021-04-24] VITALS: Ht 152.4 cm; Wt 91.2 kg
[~2021-04-24 19:50] MED LIST changes: -NITR100C PO
[2021-04-24 19:55] VITALS: BP 118/65
[2021-04-24 20:27] LABS: APPEARANCE,URINE Clear (CLEAR); BILIRUBIN,URINE Negative (NEGATIVE); COLOR,URINE Yellow (YELLOW); GLUCOSE, URINE (UA) >=1000 mg/dL (NEGATIVE); KETONES,URINE Negative (NEGATIVE); LEUKOCYTE ESTERASE ,URINE Negative (NEGATIVE); NITRATE,URINE Negative (NEGATIVE); OCCULT BLOOD,URINE Negative (NEGATIVE); PH,URINE 6.5 (5.0-8.0); PROTEIN,URINE Negative (NEGATIVE)
[2021-04-24 20:35] LABS: AMPHET/METH SCREEN,URINE NEGATIVE (NEGATIVE); BARBITURATE SCREEN, URINE NEGATIVE (NEGATIVE); BENZODIAZEPINES SCREEN,URINE NEGATIVE (NEGATIVE); CANNABINOID SCREEN,URINE NEGATIVE (NEGATIVE); COCAINE SCREEN,URINE NEGATIVE (NEGATIVE); OPIATE SCREEN,URINE NEGATIVE (NEGATIVE); PHENCYCLIDINE SCREEN,URINE NEGATIVE (NEGATIVE)
[2021-04-24 20:54] LABS: RBC,URINE 0-1 /HPF (0-1)
[2021-04-24 20:55] LABS: AMORPHOUS SEDIMENT,UR Few /LPF (None Seen); BACTERIA,URINE Few /HPF (None Seen); MUCUS,URINE Rare LPF (None Seen); SQUAMOUS EPITHELIAL CELL,UR Moderate /HPF (0-2)
[2021-04-24] MEDS ORDERED: PROMETHAZINE HCL 25 MG/ML 1ML AMPULE IM PRN (21:30)
[2021-04-24] MEDS ORDERED: LACTATED RINGERS 1000ML IV SCH (21:30)
[2021-04-24] MEDS ORDERED: MEPERIDINE-PF 25 MG/ML SYG IM ONE (21:38)
[2021-04-24] MEDS ORDERED: CLINDAMYCIN IVPB 900MG/50ML 50 ML IV STA (21:38)
== END 2021-04-24 23:00 | disposition home or self-care (01) ==
LOC: EDH 19:50 → LDH 19:51
PROVIDERS: ADMIT Specialist; ATTEND Specialist
DX: O26.892 Other specified pregnancy related conditions, second trimester (principal); R10.2 Pelvic and perineal pain; N89.8 Other specified noninflammatory disorders of vagina; R42 Dizziness and giddiness; O24.112 Pre-existing type 2 diabetes mellitus, in pregnancy, second trimester; O99.342 Other mental disorders complicating pregnancy, second trimester; F41.9 Anxiety disorder, unspecified; O23.42 Unspecified infection of urinary tract in pregnancy, second trimester; N39.0 Urinary tract infection, site not specified; Z3A.27 27 weeks gestation of pregnancy; Z79.4 Long term (current) use of insulin; Z79.899 Other long term (current) drug therapy; Z98.890 Other specified postprocedural states
CPT/HCPCS: 59025; 80305; 81001; 87088; 96365; 96372 ×2; G0378 ×3; G0379; J2175; J2550; J3490; 96360

== ENCOUNTER 2021-05-13 13:02 | Observation (INO) | payer MEDICAID ==
[~2021-05-13] VITALS: Ht 152.4 cm; Wt 90.7 kg
[2021-05-13 13:04] VITALS: BP 111/68
[2021-05-13 13:56] LABS: APPEARANCE,URINE Cloudy (CLEAR); BILIRUBIN,URINE Negative (NEGATIVE); COLOR,URINE Dark Yellow (YELLOW); GLUCOSE, URINE (UA) >=1000 mg/dL (NEGATIVE); KETONES,URINE Negative (NEGATIVE); LEUKOCYTE ESTERASE ,URINE Negative (NEGATIVE); NITRATE,URINE Negative (NEGATIVE); OCCULT BLOOD,URINE Negative (NEGATIVE); PROTEIN,URINE Negative (NEGATIVE)
[2021-05-13 14:18] LABS: AMPHET/METH SCREEN,URINE NEGATIVE (NEGATIVE); BARBITURATE SCREEN, URINE NEGATIVE (NEGATIVE); BENZODIAZEPINES SCREEN,URINE NEGATIVE (NEGATIVE); CANNABINOID SCREEN,URINE NEGATIVE (NEGATIVE); COCAINE SCREEN,URINE NEGATIVE (NEGATIVE); OPIATE SCREEN,URINE NEGATIVE (NEGATIVE); PHENCYCLIDINE SCREEN,URINE NEGATIVE (NEGATIVE)
[2021-05-13 14:28] LABS: BACTERIA,URINE Few /HPF (None Seen); CALCIUM OXALATE CRYSTALS,UR Moderate /LPF (None Seen); RBC,URINE 0-1 /HPF (0-1)
[2021-05-13] MEDS ORDERED: TERBUTALINE SULFATE VIAL 1MG/ML SQ PRN (15:00)
[2021-05-13] MEDS ORDERED: LACTATED RINGERS 1000ML IV SCH (15:00)
== END 2021-05-13 16:40 | disposition home or self-care (01) ==
LOC: EDH 13:02 → LDH 13:03
PROVIDERS: ADMIT Specialist; ATTEND Specialist
DX: O62.9 Abnormality of forces of labor, unspecified (principal); O24.113 Pre-existing type 2 diabetes mellitus, in pregnancy, third trimester; O99.341 Other mental disorders complicating pregnancy, first trimester; F41.8 Other specified anxiety disorders; O99.283 Endocrine, nutritional and metabolic diseases complicating pregnancy, third trimester; E28.2 Polycystic ovarian syndrome; O99.333 Smoking (tobacco) complicating pregnancy, third trimester; F17.200 Nicotine dependence, unspecified, uncomplicated; Z3A.30 30 weeks gestation of pregnancy; Z87.440 Personal history of urinary (tract) infections; Z87.442 Personal history of urinary calculi; Z91.040 Latex allergy status; Z79.4 Long term (current) use of insulin; Z79.899 Other long term (current) drug therapy
CPT/HCPCS: 80305; 81001; 82948; 96360; 96372; G0378 ×3; G0379; J3105; J7120

== ENCOUNTER 2021-05-19 10:04 | Observation (INO) | payer MEDICAID ==
[~2021-05-19] VITALS: Ht 152.4 cm; Wt 90.7 kg
[2021-05-19 10:05] VITALS: BP 137/72
[2021-05-19 11:24] LABS: APPEARANCE,URINE Clear (CLEAR); BILIRUBIN,URINE Negative (NEGATIVE); COLOR,URINE Yellow (YELLOW); GLUCOSE, URINE (UA) Negative (NEGATIVE); KETONES,URINE Negative (NEGATIVE); LEUKOCYTE ESTERASE ,URINE Negative (NEGATIVE); NITRATE,URINE Negative (NEGATIVE); OCCULT BLOOD,URINE Negative (NEGATIVE); PH,URINE 6.5 (5.0-8.0); PROTEIN,URINE Negative (NEGATIVE); UROBILINOGEN,URINE 0.2 mg/dL (0.2-1.0)
== END 2021-05-19 12:15 | disposition home or self-care (01) ==
LOC: EDSTATUS 10:27 → LDH 10:36
PROVIDERS: ADMIT Specialist; ATTEND Specialist
DX: O36.8130 Decreased fetal movements, third trimester, not applicable or unspecified (principal); Z20.822 Contact with and (suspected) exposure to COVID-19; O26.893 Other specified pregnancy related conditions, third trimester; R09.81 Nasal congestion; Z3A.31 31 weeks gestation of pregnancy
CPT/HCPCS: 59025; 76819; 81003; 87635; 87804 ×2; G0378; G0379

== ENCOUNTER 2021-05-21 14:35 | Observation (INO) | payer MEDICAID ==
[~2021-05-21] VITALS: Ht 152.4 cm; Wt 90.7 kg
[2021-05-21 14:36] VITALS: BP 136/90
[2021-05-21] MEDS ORDERED: LACTATED RINGERS 1000ML IV SCH (16:00)
[2021-05-27] MEDS ORDERED: ASPI-1005 PO (10:10)
== END 2021-05-21 16:10 | disposition home or self-care (01) ==
LOC: EDH 14:35 → LDH 14:36
PROVIDERS: ADMIT Specialist; ATTEND Specialist
DX: O26.893 Other specified pregnancy related conditions, third trimester (principal); Z20.822 Contact with and (suspected) exposure to COVID-19; R09.81 Nasal congestion; O24.113 Pre-existing type 2 diabetes mellitus, in pregnancy, third trimester; Z79.899 Other long term (current) drug therapy; Z98.890 Other specified postprocedural states; Z3A.31 31 weeks gestation of pregnancy
CPT/HCPCS: 59025; 87635; 87804 ×2; 96360; G0378 ×2; G0379; J7120

== ENCOUNTER 2021-06-16 14:43 | Observation (INO) | payer MEDICAID ==
[~2021-06-16 14:43] MED LIST changes: -ACET1TAB25 PO; +ASPI-1005 PO
== END 2021-06-16 17:21 | disposition home or self-care (01) ==
LOC: LDH 14:43
PROVIDERS: ADMIT Specialist; ATTEND Specialist
DX: Z34.93 Encounter for supervision of normal pregnancy, unspecified, third trimester (principal); Z3A.35 35 weeks gestation of pregnancy
CPT/HCPCS: 59025; 76819; G0378 ×2

== ENCOUNTER 2021-06-23 12:06 | Observation (INO) | payer MEDICAID ==
[~2021-06-23] VITALS: Ht 152.4 cm; Wt 97.1 kg
[2021-06-23] MEDS ORDERED: LACTATED RINGERS 1000ML 1,000 ML IV PRN (12:30)
[2021-06-23 12:58] LABS: APPEARANCE,URINE Clear (CLEAR); BILIRUBIN,URINE Negative (NEGATIVE); COLOR,URINE Yellow (YELLOW); GLUCOSE, URINE (UA) Negative (NEGATIVE); KETONES,URINE Negative (NEGATIVE); LEUKOCYTE ESTERASE ,URINE Trace (NEGATIVE); NITRATE,URINE Negative (NEGATIVE); OCCULT BLOOD,URINE Negative (NEGATIVE); PH,URINE 6.5 (5.0-8.0); PROTEIN,URINE Negative (NEGATIVE)
[2021-06-23 13:02] LABS: BACTERIA,URINE Rare /HPF (None Seen); RBC,URINE 0-1 /HPF (0-1); SQUAMOUS EPITHELIAL CELL,UR Few /HPF (0-2); WBC,URINE 0-1 /HPF (0-1)
[2021-06-23 23:09] LABS: AMPHET/METH SCREEN,URINE NEGATIVE (NEGATIVE); BARBITURATE SCREEN, URINE NEGATIVE (NEGATIVE); BENZODIAZEPINES SCREEN,URINE NEGATIVE (NEGATIVE); CANNABINOID SCREEN,URINE NEGATIVE (NEGATIVE); COCAINE SCREEN,URINE NEGATIVE (NEGATIVE); OPIATE SCREEN,URINE POSITIVE (NEGATIVE); PHENCYCLIDINE SCREEN,URINE NEGATIVE (NEGATIVE)
== END 2021-06-23 14:18 | disposition home or self-care (01) ==
LOC: LDH 12:06
PROVIDERS: ADMIT Specialist; ATTEND Specialist
DX: O62.9 Abnormality of forces of labor, unspecified (principal); O24.113 Pre-existing type 2 diabetes mellitus, in pregnancy, third trimester; O99.333 Smoking (tobacco) complicating pregnancy, third trimester; F17.200 Nicotine dependence, unspecified, uncomplicated; Z3A.36 36 weeks gestation of pregnancy; Z91.040 Latex allergy status
CPT/HCPCS: 59025; 80305; 81001; 96360; G0378 ×2; G0379; J7120

== ENCOUNTER → 2021-06-24 | Outpatient (CLI) | payer MEDICAID | END | disposition home or self-care (01) | LOC: RAH 10:00 → LDH 11:24 → UNDOADMOB 11:24 → UNDODISOB 13:45 → EDSTATUS 09-18 16:34 | PROVIDERS: ATTEND Specialist | DX: O26.893 Other specified pregnancy related conditions, third trimester (principal); O24.113 Pre-existing type 2 diabetes mellitus, in pregnancy, third trimester; Z3A.36 36 weeks gestation of pregnancy | CPT/HCPCS: 76819; G0378 ==

== ENCOUNTER 2021-08-13 02:59 | Emergency (ER) | payer MEDICAID ==
[~2021-08-13] VITALS: Ht 152.4 cm; Wt 89.4 kg
[~2021-08-13 02:59] MED LIST changes: -NPH,100V SQ
[2021-08-13 04:11] LABS: BASOPHILS % (AUTO) 0.7 % (0.0-5.0); EOSINOPHILS % (AUTO) 3.8 % (0.0-8.0); HEMATOCRIT 39.3 % (36-48); LYMPHOCYTES % (AUTO) 31.4 % (21.0-51.0); MEAN CORPUSCULAR HEMOGLOBIN 28.7 pg (27.0-33.0); MEAN CORPUSCULAR HGB CONC 32.6 g/dL (32.0-36.0); MEAN CORPUSCULAR VOLUME 88.1 fL (79-99); NEUTROPHILS % (AUTO) 57.9 % (40.0-77.0); PLATELET COUNT (AUTO) 428 K/uL (130-400); RED BLOOD CELL COUNT(AUTO) 4.46 MIL/uL (4.00-5.50); RED CELL DISTRIBUTION WIDTH 13.6 % (11.0-15.5); WHITE BLOOD COUNT (AUTO) 12.2 K/uL (4.8-10.8)
[2021-08-13 04:18] LABS: CREATININE 0.8 mg/dL (0.5-1.5); POTASSIUM 3.9 mmol/L (3.5-5.1)
[2021-08-13 04:21] LABS: APPEARANCE,URINE Cloudy (CLEAR); BILIRUBIN,URINE Negative (NEGATIVE); COLOR,URINE Yellow (YELLOW); GLUCOSE, URINE (UA) Negative (NEGATIVE); KETONES,URINE Negative (NEGATIVE); LEUKOCYTE ESTERASE ,URINE Small (NEGATIVE); NITRATE,URINE Negative (NEGATIVE); OCCULT BLOOD,URINE Large (NEGATIVE); PH,URINE 6.5 (5.0-8.0); PROTEIN,URINE Negative (NEGATIVE)
[2021-08-13 04:22] LABS: ALBUMIN 3.1 g/dL (3.5-5.0); BILIRUBIN,TOTAL 0.2 mg/dL (0.2-1.0)
[2021-08-13 04:32] LABS: BACTERIA,URINE Few /HPF (None Seen); RBC,URINE 51-100 /HPF (0-1); SQUAMOUS EPITHELIAL CELL,UR Rare /HPF (0-2)
[2021-08-13 05:53] VITALS: BP 127/82
== END 2021-08-13 06:00 | disposition home or self-care (01) ==
LOC: EDH 02:59
DX: N93.9 Abnormal uterine and vaginal bleeding, unspecified (principal); R73.9 Hyperglycemia, unspecified; Z88.1 Allergy status to other antibiotic agents; Z88.6 Allergy status to analgesic agent; Z91.040 Latex allergy status; Z91.018 Allergy to other foods; Z79.899 Other long term (current) drug therapy; Z79.82 Long term (current) use of aspirin; Z98.890 Other specified postprocedural states
CPT/HCPCS: 36415; 76830; 80053; 81001; 84703; 85025; 86900; 86901

== ENCOUNTER 2021-11-18 13:05 | Emergency (ER) | payer MEDICAID ==
[~2021-11-18] VITALS: Ht 152.4 cm; Wt 96.2 kg
[2021-11-18] MEDS ORDERED: REPA1TAB5 PO (13:17)
[2021-11-18] MEDS ORDERED: GABA-529 PO (13:17)
[2021-11-18] MEDS ORDERED: HC2530O TP (13:17)
[2021-11-18] MEDS ORDERED: ROPI0.257 PO (13:17)
[2021-11-18] MEDS ORDERED: DOXY100C5 PO (13:17)
[2021-11-18] MEDS ORDERED: METR-172 PO (13:17)
[2021-11-18 13:58] LABS: BASOPHILS % (AUTO) 0.6 % (0.0-5.0); EOSINOPHILS % (AUTO) 2.9 % (0.0-8.0); LYMPHOCYTES % (AUTO) 26.6 % (21.0-51.0); MEAN CORPUSCULAR HEMOGLOBIN 29.6 pg (27.0-33.0); MEAN CORPUSCULAR HGB CONC 32.6 g/dL (32.0-36.0); MEAN CORPUSCULAR VOLUME 90.7 fL (79-99); MONOCYTES % (AUTO) 5.2 % (3.0-13.0); NEUTROPHILS % (AUTO) 64.3 % (40.0-77.0); PLATELET COUNT (AUTO) 335 K/uL (130-400); RED BLOOD CELL COUNT(AUTO) 4.63 MIL/uL (4.00-5.50); RED CELL DISTRIBUTION WIDTH 13.6 % (11.0-15.5); WHITE BLOOD COUNT (AUTO) 12.2 K/uL (4.8-10.8)
[2021-11-18 14:15] LABS: BILIRUBIN,URINE SMALL (NEGATIVE); GLUCOSE, URINE (UA) NEGATIVE (NEGATIVE); KETONES,URINE NEGATIVE (NEGATIVE); LEUKOCYTE ESTERASE ,URINE TRACE (NEGATIVE); NITRATE,URINE NEGATIVE (NEGATIVE); OCCULT BLOOD,URINE LARGE (NEGATIVE); PH,URINE 5.5 (5.0-8.0); PROTEIN,URINE 30 mg/dL (NEGATIVE); UROBILINOGEN,URINE 0.2 mg/dL (0.2-1.0)
[2021-11-18 14:16] LABS: HCG,QUAL RESULT NEGATIVE (NEGATIVE)
[2021-11-18 14:20] LABS: AMPHET/METH SCREEN,URINE NEGATIVE (NEGATIVE); BARBITURATE SCREEN, URINE NEGATIVE (NEGATIVE); BENZODIAZEPINES SCREEN,URINE NEGATIVE (NEGATIVE); CANNABINOID SCREEN,URINE NEGATIVE (NEGATIVE); COCAINE SCREEN,URINE NEGATIVE (NEGATIVE); OPIATE SCREEN,URINE NEGATIVE (NEGATIVE); PHENCYCLIDINE SCREEN,URINE NEGATIVE (NEGATIVE)
[2021-11-18 14:22] LABS: APPEARANCE,URINE CLOUDY (CLEAR); COLOR,URINE AMBER (YELLOW)
[2021-11-18 14:24] LABS: ALBUMIN 2.9 g/dL (3.5-5.0); BILIRUBIN,TOTAL 0.1 mg/dL (0.2-1.0); CREATININE 0.8 mg/dL (0.5-1.5); TOTAL PROTEIN, SERUM 6.5 g/dL (6.0-8.3)
[2021-11-18] MEDS ORDERED: 0.9%NACL 1000ML 1,000 ML IV ONE (14:30)
[2021-11-18] MEDS ORDERED: ONDANSETRON 4MG INJ IVP ONE (14:30)
[2021-11-18] MEDS ORDERED: HYDROMORPHONE 1 MG INJ IVP ONE (14:30)
[2021-11-18] MEDS ORDERED: FAMOTIDINE 20MG VIAL IV ONE (14:30)
[2021-11-18 14:39] LABS: BACTERIA,URINE Few /HPF (None Seen); MUCUS,URINE Few LPF (None Seen); RBC,URINE >100 /HPF (0-1); SQUAMOUS EPITHELIAL CELL,UR Few /HPF (0-2)
[2021-11-18] MEDS ORDERED: IOHEXOL 350 MG/ML 100ML INFUS..BTL IV ONE (15:06)
[2021-11-18 15:54] LABS: APPEARANCE,URINE CLEAR (CLEAR); BILIRUBIN,URINE NEGATIVE (NEGATIVE); COLOR,URINE YELLOW (YELLOW); GLUCOSE, URINE (UA) NEGATIVE (NEGATIVE); KETONES,URINE NEGATIVE (NEGATIVE); LEUKOCYTE ESTERASE ,URINE TRACE (NEGATIVE); NITRATE,URINE NEGATIVE (NEGATIVE); OCCULT BLOOD,URINE NEGATIVE (NEGATIVE); PROTEIN,URINE NEGATIVE (NEGATIVE); UROBILINOGEN,URINE 0.2 mg/dL (0.2-1.0)
[2021-11-18 16:05] LABS: BACTERIA,URINE Rare /HPF (None Seen); SQUAMOUS EPITHELIAL CELL,UR None Seen /HPF (0-2)
[2021-11-18] MEDS ORDERED: POLY17PO4 PO (18:19)
[2021-11-18 18:33] VITALS: BP 110/63
== END 2021-11-18 18:51 | disposition home or self-care (01) ==
LOC: EDH 13:05
DX: N93.9 Abnormal uterine and vaginal bleeding, unspecified (principal); K59.00 Constipation, unspecified; Z20.822 Contact with and (suspected) exposure to COVID-19; E11.9 Type 2 diabetes mellitus without complications; Z88.1 Allergy status to other antibiotic agents; Z88.5 Allergy status to narcotic agent; Z79.82 Long term (current) use of aspirin
CPT/HCPCS: 99285; 74177; 96374; 76856; 96375; 87635; 82150; 82550; 84484; 80053; 80305; 84702; 85025; 87210; 82948 ×3; 83605; 87797; 87486; 81025; 36415; 81001 ×2; C9803; J1170; J7030; J2405; Q9967; S0028; J3490

== ENCOUNTER → 2023-05-14 | Outpatient (CLI) | payer MEDICAID ==
[~2023-05-14] MED LIST changes: -ASPI-1005 PO; +DOXY100C5 PO; +GABA-529 PO; +HC2530O TP; +METR-172 PO; -PNV#1CAP5 PO; +POLY17PO4 PO; +REPA1TAB5 PO; +ROPI0.2535 PO
== END | disposition home or self-care (01) ==
LOC: SHCH 10:30
PROVIDERS: ATTEND Internal Medicine
DX: I37.1 Nonrheumatic pulmonary valve insufficiency (principal); R94.31 Abnormal electrocardiogram [ECG] [EKG]; E11.9 Type 2 diabetes mellitus without complications
CPT/HCPCS: 93306